=== PATIENT | male | born 1985 | race Caucasian/White ===

== ENCOUNTER 2023-12-08 05:42 | Outpatient (CLI) | payer MEDICARE, SELFPAY ==
[2023-12-08 11:00] LABS: ALT 31 U/L (16-63); AST 20 U/L (15-37); Albumin 4.1 g/dL (3.4-5.0); Alkaline Phosphatase 64 U/L (46-116); Anion Gap 11.9 mmol/L (3-11); BUN 22 mg/dL (7-18); Bilirubin, Total 0.4 mg/dL (0.2-1.0); CO2 26.1 mmol/L (21.0-32.0); CREATININE 0.9 mg/dL (0.70-1.30); Calcium 9.2 mg/dL (8.5-10.1); Calculated LDL 201 mg/dL (<100); Chloride 103 mmol/L (98-107); Cholesterol 269 mg/dL (<200); Estimated GFR 110.73 (mL/min/1.73m2); Ferritin 90 ng/mL (26-388); Glucose 100 mg/dL (74-106); HDL Cholesterol 50 mg/dL (40-60); Potassium 4.3 mmol/L (3.5-5.1); Sodium 141 mmol/L (136-145); Total Protein 7.9 g/dL (6.4-8.2); Triglyceride 94 mg/dL (<150)
[2023-12-08 11:10] LABS: Iron 97 ug/dL (65-175); Total Iron Binding Capacity 332 ug/dL (250-450); Transferrin Sat 29 % (20-55)
[2023-12-08 18:33] LABS: Hepatitis C Ab w Rflx HCV PCR Negative (Negative)
[2023-12-08 18:37] LABS: HIV-1/2 Ag & Ab Screen Negative (Negative)
== END 2023-12-08 05:43 | disposition home or self-care (01) ==
LOC: LBO 05:42
PROVIDERS: PCP Family Medicine; Visit Provider Family Medicine
DX: Z11.3 Encounter for screening for infections with a predominantly sexual mode of transmission (principal); Z13.6 Encounter for screening for cardiovascular disorders; D64.9 Anemia, unspecified
CPT/HCPCS: 36415; 80053; 80061; 86803; 87389; 82728; 83540; 83550